=== PATIENT | male | born 1990 | race Caucasian/White ===

== ENCOUNTER 2016-09-17 14:40 | Emergency (ER) | payer SELFPAY ==
[~2016-09-17] VITALS: Ht 175.3 cm; Wt 70.0 kg
[~2016-09-17 14:40] MED LIST: TRAM50 PO; Z.0.NO CURRENT MEDS; ZOFR4TAB OR
[2016-09-17 14:48] VITALS: BP 134/89; PULSE 102; RESP 16; TEMP 98.2; O2SAT 98
[2016-09-17 14:54] VITALS: BP 134/89; PULSE 102; RESP 16; TEMP 98.2; O2SAT 98
--- NOTE | 2016-09-17 14:56 | PD ---
HPI Chief Complaint: Injury Time Seen by Provider: 14:56 Travel History International Travel<30 days: No Contact w/Intl Traveler<30days: No Traveled to known affect area: No History of Present Illness HPI 25-year-old male presents to emergency Department with injury to the left foot. Patient states he was walking in the water last evening and stepped on some barnacles. He has a sore area on the sole of foot just proximal to the fourth digit which she feels may have a foreign body in it from barnacles. Pain is 1/10 unless he is ambulating and then it is 6/10. He states it feels like he stepping on a rock when he is walking now. There is no erythema, drainage, bleeding, or other signs of infection. He has no fever, chills or other symptoms. He is allergic to acetaminophen. [facility] Social History Alcohol Use: Yes (1-2 DRINKS A WEEK) Tobacco Use: Yes (1/2 PPD) Substance Use: No Allergies-Medications (Allergen,Severity, Reaction): Coded Allergies: Acetaminophen (Verified Allergy, Severe, EAR RINGING/RASH, 09/17/16) Reported Meds & Prescriptions Reported Meds & Active Scripts Active No Active Prescriptions or Reported Medications Review of Systems Except as stated in HPI: all other systems reviewed are Neg General / Constitutional: No: Fever Eyes: No: Visual changes HENT: No: Headaches Cardiovascular: No: Chest Pain or Discomfort Respiratory: No: Shortness of Breath Gastrointestinal: No: Abdominal Pain Genitourinary: No: Dysuria Musculoskeletal: No: Pain Skin: No Rash Neurologic: No: Weakness Psychiatric: No: Depression Endocrine: No: Polydipsia Hematologic/Lymphatic: No: Easy Bruising Physical Exam Narrative GENERAL: Patient appears in no acute distress. SKIN: Warm and dry. Normal color. Normal turgor. There is a small appears to be superficial laceration/puncture wound on the sole of foot without obvious foreign body or erythema, drainage, or other signs of infection. HEAD: Atraumatic. Normocephalic. EYES: Pupils equal and round. No scleral icterus. No injection or drainage. ENT: No nasal bleeding or discharge. Mucous membranes pink and moist. Pharynx is clear. Airway is patent. NECK: Trachea midline. Supple nontender. CARDIOVASCULAR: Regular rate and rhythm. RESPIRATORY: No accessory muscle use. Clear to auscultation. Breath sounds equal bilaterally. MUSCULOSKELETAL: Extremities without clubbing, cyanosis, or edema. No obvious deformities. Range of motion is full throughout. NEUROLOGICAL: Awake and alert. No obvious cranial nerve deficits. Motor grossly within normal limits. Five out of 5 muscle strength in the arms and legs. Normal speech. PSYCHIATRIC: Appropriate mood and affect; insight and judgment normal. Data Data Last Documented VS Vital Signs Date Time Temp Pulse Resp B/P Pulse Ox O2 Delivery O2 Flow Rate FiO2 09/17/16 14:54 98.2 102 16 134/89 98 09/17/16 14:48 Room Air Orders Foot, Complete ([id number]) (09/17/16 14:56) [facility] Medical Decision Making Medical Screen Exam Complete: Yes Emergency Medical Condition: Yes Differential Diagnosis Puncture wound left sole. Possible body. Cellulitis. Narrative Course Patient is medically stable at time of exam X-ray of the left foot is ordered to rule out foreign body. X-rays negative per radiologist. Patient will be covered with doxycycline 100 milligrams twice a day 5 days as he was written a Marine environment. Patient also given ibuprofen 803 times daily with food #30 for pain. Patient is to soak the area in warm soapy water twice daily for the next several days until improved. Patient to follow with his primary care physician or return to emergency Department with any worsening symptoms. Diagnosis Primary Impression: Crushing injury of left foot Qualified Code: S97.82XA - Crushing injury of left foot, initial encounter Additional Impression: Marine dermatitis Referrals: [facility] Primary Care Physician Patient Instructions: General Instructions, Marine Animal Bite or Sting (ED) Additional Instructions: X-rays negative per radiologist. Patient will be covered with doxycycline 100 milligrams twice a day 5 days as he was written a Marine environment. Patient also given ibuprofen 803 times daily with food #30 for pain. Patient is to soak the area in warm soapy water twice daily for the next several days until improved. Patient to follow with his primary care physician or return to emergency Department with any worsening symptoms. Med/Other Pt SpecificInfo: Prescription(s) given Scripts No Active Prescriptions or Reported Meds Disposition: 01 DISCHARGE HOME Condition: Stable Jimi Wakefield September 17, 2016 14:56
--- NOTE | 2016-09-17 15:26 | RADHPO ---
EXAM DATE/TIME: 09/17/2016 15:01 [facility] COMPARISON: No previous studies available for comparison. INDICATIONS : Left foot discomfort. Patient states he stepped on an oyster bed yesterday and feels like something g ot stuck in his foot. MEDICAL HISTORY : None. SURGICAL HISTORY : None. ENCOUNTER: Initial ACUITY: 2 days PAIN SCORE: 3/10 LOCATION: Left foot. FINDINGS: Three view examination of the left foot demonstrates no soft tissue swelling, dislocation, or fractur e. The tarsal bones appear intact. The interphalangeal and metatarsophalangeal joints are intact. The calcaneus is intact. Bony mineralization is normal. No radiopaque foreign body observed. CONCLUSION: Unremarkable examination of the left foot. Olvin Chavez Jr., MD on September 17, 2016 at 15:24 Board Certified Radiologist. This report was verified electronically.
[2016-09-17] MEDS ORDERED: DOXY100C PO (15:33)
[2016-09-17] MEDS ORDERED: IBUP800T23 PO (15:33)
== END 2016-09-17 15:38 | disposition home or self-care (01) ==
LOC: PHEFT 14:40
DX: S91.312A Laceration without foreign body, left foot, initial encounter (principal); L30.9 Dermatitis, unspecified; F17.210 Nicotine dependence, cigarettes, uncomplicated; W26.8XXA Contact with other sharp object(s), not elsewhere classified, initial encounter; Y93.89 Activity, other specified; Y92.832 Beach as the place of occurrence of the external cause; Y99.9 Unspecified external cause status
CPT/HCPCS: 73630; 99283

== ENCOUNTER 2017-01-30 14:34 | Emergency (ER) | payer SELFPAY ==
[~2017-01-30] VITALS: Ht 175.3 cm; Wt 80.0 kg
[~2017-01-30 14:34] MED LIST changes: +DOXY100C PO; +IBUP800T23 PO; -TRAM50 PO; -Z.0.NO CURRENT MEDS; -ZOFR4TAB OR
[2017-01-30 14:44] VITALS: BP 150/89; PULSE 113; RESP 22; TEMP 98.3; O2SAT 99
--- NOTE | 2017-01-30 15:43 | RADRPT ---
EXAM DATE/TIME: 01/30/2017 15:19 [facility] COMPARISON: No previous studies available for comparison. INDICATIONS : Right elbow pain and laceration from dog bite. MEDICAL HISTORY : None. SURGICAL HISTORY : None. ENCOUNTER: Initial ACUITY: 1 day PAIN SCORE: 10/10 LOCATION: Right elbow FINDINGS: Two view examination of the right elbow demonstrates no soft tissue swelling, joint effusion, fractur e or dislocation. Bony mineralization is normal. There is some air in the soft tissues but no eviden ce of foreign body CONCLUSION: Unremarkable limited examination of the right elbow except some soft tissue air. Mitch Kaminski MD on January 30, 2017 at 15:41 Board Certified Radiologist. This report was verified electronically.
--- NOTE | 2017-01-30 15:44 | RADRPT ---
EXAM DATE/TIME: 01/30/2017 15:22 [facility] COMPARISON: No previous studies available for comparison. INDICATIONS : Right forearm pain and laceration from dog bite. MEDICAL HISTORY : None. SURGICAL HISTORY : None. ENCOUNTER: Initial ACUITY: 1 day PAIN SCORE: 10/10 LOCATION: Right forearm FINDINGS: Two view examination of the right forearm demonstrates no evidence of fracture or dislocation. Bony mineralization is normal. The soft tissue structures are intact. On the lateral film there is a roun ded 4-5 mm density within the area of the wound however it's not seen a tiny accompanying elbow film therefore I do not believe it's a foreign body CONCLUSION: Unremarkable examination of the right forearm except for extensive subcutaneous air. Mitch Kaminski MD on January 30, 2017 at 15:42 Board Certified Radiologist. This report was verified electronically.
--- NOTE | 2017-01-30 15:48 | PD ---
HPI Chief Complaint: Bite or Sting Time Seen by Provider: 15:02 Travel History International Travel<30 days: No Contact w/Intl Traveler<30days: No Traveled to known affect area: No History of Present Illness HPI 26-year-old male brought in under police custody for evaluation of a dog bite to his right forearm. Apparently patient was fleeing the police when a police canine was used to apprehend him. Patient sustained dog bite to the right forearm and elbow region. Patient has multiple puncture wounds and one gaping 3 cm laceration. The dog's immunizations were up-to-date. The patient's tetanus status is up-to-date. The patient did not sustain any other injuries. He reports pain localized to the right arm at the site of the laceration. Bleeding is well-controlled. [facility] Past Medical History Medical History: Denies Significant Hx Diminished Hearing: No Tetanus Vaccination: < 5 Years Past Surgical History Surgical History: No Previous Surgery Social History Alcohol Use: No Tobacco Use: Yes (1/2 PPD) Substance Use: Yes (meth) Allergies-Medications (Allergen,Severity, Reaction): Coded Allergies: acetaminophen (Unverified Allergy, Severe, EAR RINGING/RASH, 01/30/17) Reported Meds & Prescriptions Reported Meds & Active Scripts Active No Active Prescriptions or Reported Medications Review of Systems Except as stated in HPI: all other systems reviewed are Neg Physical Exam Narrative GENERAL: Well-nourished, well-developed patient. SKIN: Focused skin assessment warm/dry. Right upper extremity multiple puncture wounds to the volar aspect of the right forearm. One 6 cm gaping wound to the dorsal aspect of the forearm. Bleeding is well-controlled. No tendon or underlying vascular injury suspected. HEAD: Normocephalic. EYES: No scleral icterus. No injection or drainage. NECK: Supple, trachea midline. No JVD or lymphadenopathy. CARDIOVASCULAR: Regular rate and rhythm without murmurs, gallops, or rubs. RESPIRATORY: Breath sounds equal bilaterally. No accessory muscle use. GASTROINTESTINAL: Abdomen soft, non-tender, nondistended. MUSCULOSKELETAL: No cyanosis, or edema. Right upper extremity: Tenderness and mild swelling to the proximal aspect of the right forearm. No bony point tenderness. multiple puncture wounds to the volar aspect of the right forearm. One 3 cm gaping wound to the dorsal aspect of the forearm. Bleeding is well- controlled. No tendon or underlying vascular injury suspected. Patient has full range of motion of the elbow, wrists, digits. 2+ distal pulses. Brisk cap refill. Normal sensation. Compartments in the forearm are soft. Data Data Last Documented VS Vital Signs Date Time Temp Pulse Resp B/P (MAP) Pulse Ox O2 Delivery O2 Flow Rate FiO2 01/30/17 14:44 98.3 113 22 150/89 (109) 99 Orders Orders Forearm (2vws) (01/30/17 ) Elbow, Limited (Ap&Lat) (01/30/17 ) MDM Medical Decision Making Medical Screen Exam Complete: Yes Emergency Medical Condition: Yes Differential Diagnosis Dog bite, puncture wound, laceration, contusion, abrasion Narrative Course 26-year-old male brought in under police custody for evaluation of a dog bite to the right upper extremity. Patient was fleeing police custody when a police canine was used to apprehend him. Patient sustained a dog bite to the right forearm with an approximate 6 cm gaping laceration to the dorsal aspect of the right proximal forearm. No underlying tendon or vascular injury suspected. The extremity is neurovascular intact. X-ray was negative for fracture or foreign body. All wounds were extensively irrigated and cleansed. The 6 cm gaping laceration was loosely approximated with 3 sutures. Risk of infection discussed at length with patient. Patient verbalizes understanding. Patient we put on antibiotics. Tetanus in relation up-to-date. Procedures Procedure Narrative LACERATION LOCATION: Right forearm LENGTH: 6 cm NUMBER OF STITCHES/KARIN: 3 REPAIR: The area of the laceration was prepped with Betadine and sterilely draped. The laceration was infiltrated with 1% lidocaine. The wound was copiously irrigated and explored without evidence of foreign body, tendon injury or neurovascular injury. The wound was closed using 4-0 Ethilon. This was a single layer and loosely approximated repair. A sterile dressing was applied. The patient was advised to keep the dressing clean and dry. Patient tolerated the procedure well. Diagnosis Primary Impression: Dog bite Qualified Codes: W54.0XXA - Bitten by dog, initial encounter Additional Impression: Laceration of right upper extremity Qualified Codes: S41.111A - Laceration without foreign body of right upper arm , initial encounter Referrals: [facility] Additional Instructions: The wounds need to be cleansed with soap and water daily. Wounds need to be closely monitored for infection. Use the sling to elevate the extremity. Take the antibiotics daily as prescribed. Take Motrin 600 800 mg every 6-8 hours as needed for pain. Scripts Amoxicillin-Clavulanate (Augmentin) 875-125 Mg Tab 1 TAB PO BID for Infection, #20 TAB 0 Refills Prov: Rody Vargas 01/30/17 Disposition: 01 DISCHARGE HOME Condition: Stable Rody Vargas Jan 30, 2017 15:48
[2017-01-30] MEDS ORDERED: AUGM875T3 PO (16:52)
[2017-01-30] MEDS ORDERED: AMOXICILLIN/CLAVULANATE K 875 MG TAB PO ONE (17:00)
[2017-01-30] MEDS ORDERED: IBUPROFEN 800 MG TAB PO ONE (17:00)
== END 2017-01-30 17:37 | disposition home or self-care (01) ==
LOC: NEPD 14:34
DX: S41.111A Laceration without foreign body of right upper arm, initial encounter (principal); W54.0XXA Bitten by dog, initial encounter
CPT/HCPCS: 12002; 73070; 73090